=== PATIENT | male | born 1955 | race Caucasian/White ===

== ENCOUNTER 2023-09-13 22:36 | Inpatient (IN) ==
[2023-09-13 22:55] LABS: ABS Eosinophils 0.1 10^3/uL (0.0-0.5); ABS Lymphocytes 1.1 10^3/uL (1.0-4.8); ABS Monocytes 0.7 10^3/uL (0.0-1.1); ABS Neutrophils 5.2 10^3/uL (1.5-7.6); ABS Nucleated RBC 0.01 10^3/ul; Eosinophil % 1.4 %; Hematocrit 39.2 % (38-53); Hemoglobin 13.5 g/dL (13.2-16.3); Lymphocyte % 15.6 %; Mean Corpuscular Hemoglobin 34.8 pg (27-33); Mean Corpuscular Hgb Conc 34.4 g/dL (31-36); Nucleated Red Blood Cells % 0.1 %/100WBC (0.0-0.8); Platelet Count 280 10^3/uL (150-450); Red Blood Count 3.88 10^6/uL (4.06-5.63); Red Cell Distribution Width 13.7 % (12-17); White Blood Count 7.2 10^3/uL (3.6-10.2)
[2023-09-13 23:04] LABS: Activated Partial Thrombo Time 31.7 seconds (26.0-38.0); INR 1.13 (0.83-1.13)
[2023-09-13 23:50] LABS: Albumin/Globulin Ratio 1.7 (1-3); C Reactive Protein 18.03 mg/L (<8.01); Calcium 8.8 mg/dL (8.6-10.3); Creatinine, Serum 1.1 mg/dL (0.67-1.17); Globulin 2.4 g/dL (2-4); Total Bilirubin 0.5 mg/dL (0.2-1.0); Total Protein 6.4 g/dL (6.4-8.9); eGFR CKD-EPI 72.7 (>60)
[2023-09-14 00:33] LABS: High Sensitivity Troponin 1 Hr 5 pg/mL (<20)
[2023-09-14 00:56] LABS: Urine Specific Gravity 1.051 (1.002-1.030)
[2023-09-14 00:58] LABS: Urine Appearance Clear; Urine Bacteria Absent /HPF (Absent); Urine Bilirubin Negative (Negative); Urine Blood Negative (Negative); Urine Color Yellow; Urine Glucose Negative (Negative); Urine Ketones Trace (Negative); Urine Nitrite Negative (Negative); Urine Protein 1+ (>=30 mg/dL) (Negative); Urine Red Blood Cell Absent /HPF (0-Trace); Urine Squamous Epithelial Cell Present /HPF (Absent); Urine Urobilinogen 1+ (Negative); Urine White Blood Cell Absent /HPF (0-Trace); Urine pH 5.5 (5.0-8.0)
[2023-09-14] MEDS: Dexamethasone IV 4 MG/ML VIAL 1 ml VIAL IV SLOW PU ONE (01:26)
[2023-09-14 04:03] LABS: Folate 12.16 ng/mL (5.90-24.80)
[2023-09-14 06:05] LABS: Hematocrit 38.3 % (38-53); Hemoglobin 13.2 g/dL (13.2-16.3); Mean Corpuscular Hemoglobin 34.5 pg (27-33); Mean Corpuscular Hgb Conc 34.5 g/dL (31-36); Mean Corpuscular Volume 100.1 fL (80-97); Platelet Count 250 10^3/uL (150-450); Red Blood Count 3.83 10^6/uL (4.06-5.63); Red Cell Distribution Width 13.8 % (12-17); White Blood Count 6.7 10^3/uL (3.6-10.2)
[2023-09-14] MEDS: Dexamethasone IV 4 MG/ML VIAL 1 ml VIAL IV SLOW PU SCH (06:05)
[2023-09-14] MEDS: Heparin 5000 UNITS/ML 1 mL VIAL SUBCUT SCH (06:06)
[2023-09-14 06:54] LABS: Calcium 8.6 mg/dL (8.6-10.3); Creatinine, Serum 0.81 mg/dL (0.67-1.17); Potassium 4.2 mmol/L (3.5-5.0); eGFR CKD-EPI 95.4 (>60)
[2023-09-14 08:50] LABS: ABS Lymphocytes 0.7 10^3/uL (1.0-4.8); ABS Monocytes 0.5 10^3/uL (0.0-1.1); ABS Neutrophils 5.4 10^3/uL (1.5-7.6); ABS Nucleated RBC 0.01 10^3/ul; Eosinophil % 0.6 %; Lymphocyte % 10.1 %; Nucleated Red Blood Cells % 0.1 %/100WBC (0.0-0.8); RBC Morphology Normal (Normal)
[2023-09-14] MEDS: Pantoprazole VIAL 40 MG VIAL IV SCH (09:19)
[2023-09-15] MEDS: Cyanocobalamin INJ 1,000 MCG/ML VIAL 1 ML VIAL IM ONE (09:56)
[2023-09-15 11:22] LABS: Calcium 9.2 mg/dL (8.6-10.3); Creatinine, Serum 0.95 mg/dL (0.67-1.17); eGFR CKD-EPI 86.6 (>60)
[2023-09-16 06:52] LABS: Creatinine, Serum 0.84 mg/dL (0.67-1.17); Potassium 4.3 mmol/L (3.5-5.0); eGFR CKD-EPI 94.4 (>60)
[2023-09-17] MEDS: Gadoteridol (CONTRAST) 279.3 MG/ML 10 ML IV ONE (16:08)
[2023-09-18 09:28] LABS: Calcium 8.8 mg/dL (8.6-10.3); Creatinine, Serum 0.84 mg/dL (0.67-1.17); Potassium 4.5 mmol/L (3.5-5.0); eGFR CKD-EPI 94.4 (>60)
[2023-09-18] MEDS: Iohexol 300 (CONTRAST) 10 ML SDV IV ONE (14:32)
[2023-09-19] MEDS ORDERED: Lisinopril/HCTZ 10/12.5 TA(NF) PO SCH (09:00)
[2023-09-20] MEDS ORDERED: Naloxone Nasal Spray 4 MG/0.1 ML NASAL.SPR INTRANASAL PRN (16:47)
[2023-09-20] MEDS: fentaNYL 100 mcg/2 ml 50 MCG/ML VIAL ONE (16:55)
[2023-09-20] MEDS: HYDROmorphone 1 MG/1 ML SYRINGE IV SLOW PU PRN (20:13)
[2023-09-20] MEDS ORDERED: Heparin 5000 UNITS/ML 1 mL VIAL SUBCUT SCH (22:00)
[2023-09-21] MEDS: Morphine ORAL.SOLN 10 mg 2 mg/ml UDC 5 ml (10 mg) PO ONE (04:51)
[2023-09-21 06:31] LABS: Calcium 8.4 mg/dL (8.6-10.3); Creatinine, Serum 2.48 mg/dL (0.67-1.17); Potassium 5.1 mmol/L (3.5-5.0); eGFR CKD-EPI 27.4 (>60)
[2023-09-21 07:41] LABS: Hematocrit 44.9 % (38-53); Hemoglobin 15.2 g/dL (13.2-16.3); Mean Corpuscular Hemoglobin 34.1 pg (27-33); Mean Corpuscular Hgb Conc 33.8 g/dL (31-36); Mean Corpuscular Volume 101.1 fL (80-97); Platelet Count 195 10^3/uL (150-450); Red Blood Count 4.44 10^6/uL (4.06-5.63); Red Cell Distribution Width 14.4 % (12-17); White Blood Count 29.3 10^3/uL (3.6-10.2)
[2023-09-21 08:36] LABS: ABS Eosinophils 0.1 10^3/uL (0.0-0.5); ABS Lymphocytes 1.2 10^3/uL (1.0-4.8); ABS Monocytes 3.1 10^3/uL (0.0-1.1); ABS Neutrophils 24.8 10^3/uL (1.5-7.6); ABS Nucleated RBC 0.02 10^3/ul; Eosinophil % 0.3 %; Lymphocyte % 4.2 %; Nucleated Red Blood Cells % 0.1 %/100WBC (0.0-0.8)
[2023-09-21 08:37] LABS: Macrocytosis 1+
[2023-09-21] MEDS: Lactated Ringers 1000 ml BAG 1,000 ML IV SCH ×2 (10:43→17:48)
[2023-09-21 15:54] LABS: C Reactive Protein 13.41 mg/L (<8.01)
[2023-09-22 06:13] LABS: Hematocrit 42.7 % (38-53); Hemoglobin 14.7 g/dL (13.2-16.3); Mean Corpuscular Hemoglobin 34.2 pg (27-33); Mean Corpuscular Hgb Conc 34.3 g/dL (31-36); Mean Corpuscular Volume 99.6 fL (80-97); Mean Platelet Volume 8.3 fL (7.5-11.2); Platelet Count 164 10^3/uL (150-450); Red Blood Count 4.29 10^6/uL (4.06-5.63); White Blood Count 26.4 10^3/uL (3.6-10.2)
[2023-09-22 06:56] LABS: Calcium 8.7 mg/dL (8.6-10.3); Creatinine, Serum 1.07 mg/dL (0.67-1.17); Potassium 4.9 mmol/L (3.5-5.0); eGFR CKD-EPI 75.1 (>60)
[2023-09-22 08:29] LABS: ABS Basophils 0.1 10^3/uL (0.0-0.1); ABS Lymphocytes 1.3 10^3/uL (1.0-4.8); ABS Monocytes 3.7 10^3/uL (0.0-1.1); ABS Neutrophils 21.4 10^3/uL (1.5-7.6); ABS Nucleated RBC 0.04 10^3/ul; Eosinophil % 0.1 %; Lymphocyte % 4.8 %; Macrocytosis 1+; Nucleated Red Blood Cells % 0.1 %/100WBC (0.0-0.8)
[2023-09-23 06:38] LABS: Hematocrit 45.4 % (38-53); Hemoglobin 15.2 g/dL (13.2-16.3); Mean Corpuscular Hemoglobin 33.6 pg (27-33); Mean Corpuscular Hgb Conc 33.4 g/dL (31-36); Mean Corpuscular Volume 100.8 fL (80-97); White Blood Count 27.4 10^3/uL (3.6-10.2)
[2023-09-23 06:50] LABS: Calcium 9.3 mg/dL (8.6-10.3); Creatinine, Serum 0.91 mg/dL (0.67-1.17); Potassium 5.3 mmol/L (3.5-5.0); eGFR CKD-EPI 91.2 (>60)
[2023-09-23 06:58] LABS: ABS Lymphocytes 1.2 10^3/uL (1.0-4.8); ABS Monocytes 3.4 10^3/uL (0.0-1.1); ABS Neutrophils 22.8 10^3/uL (1.5-7.6); ABS Nucleated RBC 0.15 10^3/ul; Eosinophil % 0.1 %; Lymphocyte % 4.5 %; Nucleated Red Blood Cells % 0.6 %/100WBC (0.0-0.8)
[2023-09-23 06:59] LABS: Anisocytosis 1+; Macrocytosis 1+
[2023-09-23 07:01] LABS: Mean Platelet Volume 8.8 fL (7.5-11.2); Platelet Count 151 10^3/uL (150-450)
[2023-09-23] MEDS: SODIUM ZIRCONIUM CYCLOSILICATE 5 GM PACKET PO ONE (10:39)
[2023-09-24] MEDS: Nicotine Lozenge mini 4 MG LOZNG.MINI MT PRN (04:12)
[2023-09-24 04:56] LABS: Hematocrit 42.3 % (38-53); Hemoglobin 14.5 g/dL (13.2-16.3); Mean Corpuscular Hemoglobin 34.4 pg (27-33); Mean Corpuscular Hgb Conc 34.3 g/dL (31-36); Mean Corpuscular Volume 100.4 fL (80-97); Mean Platelet Volume 9.2 fL (7.5-11.2); Platelet Count 129 10^3/uL (150-450); Red Blood Count 4.22 10^6/uL (4.06-5.63); Red Cell Distribution Width 13.9 % (12-17); White Blood Count 23.2 10^3/uL (3.6-10.2)
[2023-09-24 05:34] LABS: Calcium 8.7 mg/dL (8.6-10.3); Creatinine, Serum 0.89 mg/dL (0.67-1.17); Potassium 4.6 mmol/L (3.5-5.0); eGFR CKD-EPI 92.8 (>60)
[2023-09-24 06:10] LABS: ABS Lymphocytes 0.9 10^3/uL (1.0-4.8); ABS Monocytes 3.1 10^3/uL (0.0-1.1); ABS Neutrophils 19.1 10^3/uL (1.5-7.6); ABS Nucleated RBC 0.03 10^3/ul; Lymphocyte % 4.1 %; Macrocytosis 1+; Nucleated Red Blood Cells % 0.1 %/100WBC (0.0-0.8)
[2023-09-24] MEDS: Nicotine PATCH 7 MG/24 HR PATCH TRANSDERM SCH (09:37)
[2023-09-25 06:39] LABS: Hematocrit 43.1 % (38-53); Hemoglobin 14.8 g/dL (13.2-16.3); Mean Corpuscular Hemoglobin 34.1 pg (27-33); Mean Corpuscular Hgb Conc 34.3 g/dL (31-36); Mean Corpuscular Volume 99.3 fL (80-97); Mean Platelet Volume 8.9 fL (7.5-11.2); Platelet Count 115 10^3/uL (150-450); Red Blood Count 4.34 10^6/uL (4.06-5.63); Red Cell Distribution Width 14.2 % (12-17); White Blood Count 22.4 10^3/uL (3.6-10.2)
[2023-09-25 07:11] LABS: Calcium 8.9 mg/dL (8.6-10.3); Creatinine, Serum 0.8 mg/dL (0.67-1.17); Potassium 4.8 mmol/L (3.5-5.0); eGFR CKD-EPI 95.8 (>60)
[2023-09-25 10:59] LABS: ABS Lymphocytes 0.7 10^3/uL (1.0-4.8); ABS Monocytes 2.6 10^3/uL (0.0-1.1); ABS Nucleated RBC 0.01 10^3/ul; Eosinophil % 0.1 %; Lymphocyte % 3.3 %; Nucleated Red Blood Cells % 0.1 %/100WBC (0.0-0.8); RBC Morphology Normal (Normal)
[2023-09-26 08:10] LABS: Hematocrit 42.9 % (38-53); Hemoglobin 14.6 g/dL (13.2-16.3); Mean Corpuscular Hemoglobin 33.9 pg (27-33); Mean Corpuscular Hgb Conc 34.1 g/dL (31-36); Mean Corpuscular Volume 99.5 fL (80-97); Mean Platelet Volume 9.1 fL (7.5-11.2); Platelet Count 103 10^3/uL (150-450); Red Blood Count 4.31 10^6/uL (4.06-5.63); Red Cell Distribution Width 14.3 % (12-17)
[2023-09-26 08:44] LABS: Calcium 8.9 mg/dL (8.6-10.3); Creatinine, Serum 0.75 mg/dL (0.67-1.17); Potassium 4.5 mmol/L (3.5-5.0); eGFR CKD-EPI 97.7 (>60)
[2023-09-26 09:39] LABS: ABS Lymphocytes 0.6 10^3/uL (1.0-4.8); ABS Monocytes 2.4 10^3/uL (0.0-1.1); ABS Nucleated RBC 0.01 10^3/ul; Lymphocyte % 2.5 %; RBC Morphology Normal (Normal); Smudge Cells Present
[2023-09-26] MEDS: Furosemide 40 mg/4 ml IV VIAL IV ONE (22:10)
[2023-09-26] MEDS: Albuterol/Ipratropium NEB.SOL (2.5/0.5 MG) 3 ML NEB.SOLN ONE (22:45)
[2023-09-27 06:53] LABS: Hematocrit 40.6 % (38-53); Mean Corpuscular Hemoglobin 34.1 pg (27-33); Mean Corpuscular Hgb Conc 34.5 g/dL (31-36); Mean Corpuscular Volume 98.9 fL (80-97); Red Blood Count 4.11 10^6/uL (4.06-5.63); White Blood Count 24.5 10^3/uL (3.6-10.2)
[2023-09-27 07:01] LABS: Calcium 8.1 mg/dL (8.6-10.3); Creatinine, Serum 0.86 mg/dL (0.67-1.17); Magnesium 1.9 mg/dL (1.9-2.7); Potassium 4.3 mmol/L (3.5-5.0); eGFR CKD-EPI 93.7 (>60)
[2023-09-27] MEDS: Albuterol/Ipratropium NEB.SOL (2.5/0.5 MG) 3 ML NEB.SOLN INH PRN (08:03)
[2023-09-27 08:23] LABS: PCO2 Arterial 35 mmHg (35-45); PO2 Arterial 60 mmHg (80-100)
[2023-09-27 08:40] LABS: C Reactive Protein 363.46 mg/L (<8.01)
[2023-09-27 09:51] LABS: ABS Lymphocytes 0.5 10^3/uL (1.0-4.8); ABS Monocytes 1.6 10^3/uL (0.0-1.1); ABS Neutrophils 22.4 10^3/uL (1.5-7.6); ABS Nucleated RBC 0.02 10^3/ul; Eosinophil % 0.1 %; Lymphocyte % 1.9 %; Mean Platelet Volume 9.2 fL (7.5-11.2); Nucleated Red Blood Cells % 0.1 %/100WBC (0.0-0.8); Platelet Count 88 10^3/uL (150-450); RBC Morphology Normal (Normal); Smudge Cells Present
[2023-09-27] MEDS: Iohexol 350 (CONTRAST) 500 ML MDV IV ONE (10:54)
[2023-09-27] MEDS ORDERED: Ondansetron ODT 4 mg TAB 4 MG TAB SL PRN (14:21)
[2023-09-27] MEDS ORDERED: Morphine ORAL CONCENTRATE 5 MG/0.25 ML ORAL.SYRIN PO PRN (14:21)
[2023-09-27] MEDS ORDERED: Senna TAB 8.6 mg TAB PO PRN (14:21)
[2023-09-27] MEDS ORDERED: Zosyn per Pharmacy NOTE FOLLOW UP SCH (17:00)
[2023-09-27] MEDS: Piperacillin/Tazobac 3.375 BAG 3.375 GM/100 ML BAG IV ONE (18:33)
[2023-09-27] MEDS ORDERED: Amoxicillin/Clavul ES ORALSYR 120 MG/ML (600 mg/5 ml) PO SCH (21:00)
[2023-09-27] MEDS: ZOSYN 3.375 GM Q8H per EXTENDED INFUSION IV SCH (22:35)
[2023-09-28 17:11] VITALS: BP 141/87
== END 2023-09-28 18:05 | disposition hospice, home (50) | DRG 54 ==
LOC: ED 22:36 → SUATTDRO 09-14 01:46 → EDHOLD 09-14 01:46 → MED 09-14 05:38
PROVIDERS: ADMIT Internal Medicine; ATTEND Internal Medicine